=== PATIENT | male | born 1960 | race Caucasian/White ===

== ENCOUNTER 2021-11-09 07:19 | Outpatient (CLI) | payer BC | END 2021-11-09 07:20 | disposition home or self-care (01) | LOC: ULT 07:19 | PROVIDERS: ATTEND Physician Assistant Medical | DX: D50.0 Iron deficiency anemia secondary to blood loss (chronic) (principal); Z79.1 Long term (current) use of non-steroidal anti-inflammatories (NSAID); K74.00 Hepatic fibrosis, unspecified; R16.1 Splenomegaly, not elsewhere classified | CPT/HCPCS: 76705 ==